=== PATIENT | female | born 1990 | race African-American/Black ===

== ENCOUNTER 2016-06-12 22:46 | Emergency (ER) | payer OTHER ==
[~2016-06-12] VITALS: Ht 188 cm; Wt 160.2 kg
[~2016-06-12 22:46] MED LIST: CIPRO250 MG PO; NOHOMEMEDS; TEGRETOL200 MG PO
[2016-06-12] MEDS ORDERED: KEPPRA500 MG PO (23:09)
[2016-06-12 23:10] LABS: EOSINOPHIL (%) 2.7 % (0-5); EOSINOPHIL COUNT 0.3 K/uL (0-0.3); IMMATURE GRANULOCYTE (%) 0.2 % (0.0-0.7); IMMATURE GRANULOCYTE COUNT 0.2 K/uL; MCH 28.9 PG (29.0-34.0); MCHC 33.9 G/DL (30.0-36.0); MCV 85.2 FL (83-99); MEAN PLAT.VOLUME 9.6 uM^3 (9.5-12.4); MONOCYTE (%) 6.3 % (3-12); MONOCYTE COUNT 0.6 K/uL (0-0.8); NEUTROPHIL (%) 39.8 % (45-76); NEUTROPHIL COUNT 3.9 K/uL (1.8-6.4); PLATELET COUNT 270 K/uL (156-360); RBC DIS.WIDTH-CV 12.9 % (11.8-14.6); RBC DIS.WIDTH-SD 39.6 % (39-53); RED BLOOD COUNT 4.81 M/uL (3.80-5.20); WHITE BLOOD COUNT 9.9 K/uL (4.1-10.2)
[2016-06-12 23:19] LABS: CHLORIDE 106 mEq/L (99-109); POTASSIUM 3.7 mEq/L (3.7-5.4); SODIUM 139 mEq/L (136-147)
[2016-06-12 23:21] LABS: GLUCOSE 87 mg/dL (70-99)
[2016-06-12 23:22] LABS: ANION GAP 11 MEQ/L (2-14)
[2016-06-12 23:23] LABS: TOTAL BILIRUBIN 0.2 mg/dL (0.0-1.0)
[2016-06-12 23:25] LABS: ALKALINE PHOSPHATASE 76 IU/L (3-129); GFR ESTIMATE (CALCULATED) > 59 mL/min/
[2016-06-12 23:26] LABS: UREA NITROGEN (BUN) 9 mg/dL (9-23)
[2016-06-12 23:33] LABS: QUANTITATIVE HCG < 4.0 MIU/ML
[2016-06-13 00:35] VITALS: BP 138/85
== END 2016-06-13 00:35 | disposition home or self-care (01) ==
LOC: EME → EDBD 22:46 → EME 06-13 00:35
PROVIDERS: Emergency Medicine
DX: G40.909 Epilepsy, unspecified, not intractable, without status epilepticus (principal)
CPT/HCPCS: 70450; 80053; 81003; 84702; 85025; 99281; 99285

== ENCOUNTER 2016-10-09 22:54 | Emergency (ER) | payer SELFPAY ==
[~2016-10-09] VITALS: Ht 188 cm; Wt 156.9 kg
[~2016-10-09 22:54] MED LIST changes: +KEPPRA500 MG PO
[2016-10-10 00:21] LABS: HEMATOCRIT 40.3 % (36.0-46.0); MCH 29.2 PG (29.0-34.0); MCHC 32.8 G/DL (30.0-36.0); MCV 89.2 FL (83-99); PLATELET COUNT 283 K/uL (156-360); RBC DIS.WIDTH-CV 12.5 % (11.8-14.6); RBC DIS.WIDTH-SD 41.1 % (39-53); RED BLOOD COUNT 4.52 M/uL (3.80-5.20); WHITE BLOOD COUNT 10.3 K/uL (4.1-10.2)
[2016-10-10 00:33] LABS: CHLORIDE 109 mEq/L (99-109); POTASSIUM 3.7 mEq/L (3.7-5.4); SODIUM 140 mEq/L (136-147)
[2016-10-10 00:35] LABS: GLUCOSE 97 mg/dL (70-99)
[2016-10-10 00:36] LABS: ANION GAP 9 MEQ/L (2-14)
[2016-10-10 00:38] LABS: ADD MIUA? YES; BILIRUBIN NEGATIVE; BLOOD NEGATIVE; COLOR YELLOW ((YELLOW)); GLUCOSE (STRIP) NEGATIVE; KETONES NEGATIVE; LEUKOCYTES LARGE; NITRITE NEGATIVE; PROTEIN (STRIP) 30; SPECIFIC GRAVITY 1.016 (1.000-1.030); UROBILINOGEN 0.2 MG/DL (0.2-1.0)
[2016-10-10 00:39] LABS: GFR ESTIMATE (CALCULATED) > 59 mL/min/
[2016-10-10 00:40] LABS: UREA NITROGEN (BUN) 8 mg/dL (9-23)
[2016-10-10 00:41] LABS: CREATINE KINASE 328 IU/L (1-294); TOTAL CK 328 IU/L (1-294)
[2016-10-10 00:46] LABS: BACTERIA RARE /HPF; EPITHELIAL CELLS 1+ /HPF; HYALINE CASTS 0-5 /LPF; MUCUS 1+ /LPF; UCUL ADDED? NO; WHITE BLOOD CELLS 30-40 /HPF (0-5)
[2016-10-10 00:46] LABS: AMPHETAMINE PRESUMPTIVE POSITIVE (500 ng/mL); BARBITURATES NEGATIVE (200 ng/mL); BENZODIAZEPINES NEGATIVE (150 ng/mL); COCAINE NEGATIVE (150 ng/mL); INTERNAL CONTROLS VALID? YES; METHADONE NEGATIVE (200 ng/mL); METHAMPHETAMINE NEGATIVE (500 ng/mL); OPIATES (MORPHINE) NEGATIVE (100 ng/mL); OXYCODONE NEGATIVE (100 ng/mL); PHENCYCLIDINE NEGATIVE (25 ng/mL); PROPOXYPHENE NEGATIVE (300 ng/mL); THC CANNABINOIDS PRESUMPTIVE POSITIVE (50 ng/mL); TRICYCLIC ANTIDEPRESSANTS NEGATIVE (300 ng/mL)
[2016-10-10 00:47] LABS: CK-MB 0.9 ng/mL (0.0-4.9)
[2016-10-10 00:47] LABS: ADD MEDTOX COMMENT Y
[2016-10-10] MEDS ORDERED: MACROBID100 MG PO (01:44)
[2016-10-10 01:51] VITALS: BP 147/76
== END 2016-10-10 01:53 | disposition home or self-care (01) ==
LOC: EME → EDBD 22:54 → EME 22:54
PROVIDERS: Emergency Medicine
DX: G40.909 Epilepsy, unspecified, not intractable, without status epilepticus (principal); N30.91 Cystitis, unspecified with hematuria; I10 Essential (primary) hypertension; F17.200 Nicotine dependence, unspecified, uncomplicated
CPT/HCPCS: 80048; 80156; 81003; 82550; 82553; 84999; 85027; 99281; 99285; J7030

== ENCOUNTER 2017-01-15 10:41 | Emergency (ER) | payer SELFPAY ==
[~2017-01-15] VITALS: Ht 188 cm; Wt 150.2 kg
[~2017-01-15 10:41] MED LIST changes: +MACROBID100 MG PO
[2017-01-15 12:57] LABS: HEMATOCRIT 44.8 % (36.0-46.0); MCH 28.7 PG (29.0-34.0); MCHC 32.4 G/DL (30.0-36.0); MCV 88.5 FL (83-99); MEAN PLAT.VOLUME 10.7 uM^3 (9.5-12.4); PLATELET COUNT 294 K/uL (156-360); RBC DIS.WIDTH-CV 12.8 % (11.8-14.6); RBC DIS.WIDTH-SD 41.6 % (39-53); RED BLOOD COUNT 5.06 M/uL (3.80-5.20); WHITE BLOOD COUNT 10.9 K/uL (4.1-10.2)
[2017-01-15 13:09] LABS: ADD MIUA? YES; BILIRUBIN NEGATIVE; BLOOD NEGATIVE; COLOR YELLOW ((YELLOW)); GLUCOSE (STRIP) NEGATIVE; KETONES NEGATIVE; LEUKOCYTES NEGATIVE; NITRITE NEGATIVE; PROTEIN (STRIP) NEGATIVE; SPECIFIC GRAVITY 1.019 (1.000-1.030); UROBILINOGEN 0.2 MG/DL (0.2-1.0)
[2017-01-15 13:11] LABS: CHLORIDE 106 mEq/L (99-109); POTASSIUM 4.3 mEq/L (3.7-5.4); SODIUM 138 mEq/L (136-147)
[2017-01-15 13:12] LABS: BACTERIA RARE /HPF; EPITHELIAL CELLS 1+ /HPF; MUCUS TRACE /LPF; RED BLOOD CELLS 0-5 /HPF (0-5); UCUL ADDED? NO; WHITE BLOOD CELLS 0-5 /HPF (0-5)
[2017-01-15 13:12] LABS: GLUCOSE 87 mg/dL (70-99)
[2017-01-15 13:14] LABS: ANION GAP 11 MEQ/L (2-14)
[2017-01-15 13:16] LABS: GFR ESTIMATE (CALCULATED) > 59 mL/min/
[2017-01-15 13:17] LABS: UREA NITROGEN (BUN) 9 mg/dL (9-23)
[2017-01-15 13:25] LABS: QUANTITATIVE HCG < 4.0 MIU/ML
[2017-01-15 13:57] LABS: TOTAL BILIRUBIN 0.2 mg/dL (0.0-1.0)
[2017-01-15 13:59] LABS: ALKALINE PHOSPHATASE 88 IU/L (3-129)
[2017-01-15 14:01] LABS: DIRECT BILIRUBIN 0.1 mg/dL (0.0-0.3)
[2017-01-15 15:29] VITALS: BP 132/76
== END 2017-01-15 15:30 | disposition home or self-care (01) ==
LOC: EME 10:41
PROVIDERS: Physician Assistant Medical
DX: G40.909 Epilepsy, unspecified, not intractable, without status epilepticus (principal); I10 Essential (primary) hypertension; F41.9 Anxiety disorder, unspecified; F17.200 Nicotine dependence, unspecified, uncomplicated; Z88.0 Allergy status to penicillin; Z91.040 Latex allergy status; Z88.8 Allergy status to other drugs, medicaments and biological substances
CPT/HCPCS: 80048; 80076; 80156; 81003; 84702; 85027; 99281; 99284

== ENCOUNTER 2017-10-30 19:31 | Emergency (ER) | payer OTHER ==
[~2017-10-30] VITALS: Ht 185.4 cm; Wt 159.5 kg
[2017-10-30 20:08] LABS: HEMATOCRIT 40.8 % (36.0-46.0); HEMOGLOBIN 13.5 G/DL (11.9-15.5); MCH 29.2 PG (29.0-34.0); MCHC 33.1 G/DL (30.0-36.0); MCV 88.1 FL (83-99); PLATELET COUNT 291 K/uL (156-360); RBC DIS.WIDTH-CV 12.5 % (11.8-14.6); RBC DIS.WIDTH-SD 40.4 % (39-53); RED BLOOD COUNT 4.63 M/uL (3.80-5.20); WHITE BLOOD COUNT 9.5 K/uL (4.1-10.2)
[2017-10-30 20:19] LABS: ALBUMIN 4.3 g/dL (3.2-4.8); CHLORIDE 106 mEq/L (99-109); POTASSIUM 3.8 mEq/L (3.7-5.4); SODIUM 139 mEq/L (136-147)
[2017-10-30 20:22] LABS: GLUCOSE 89 mg/dL (70-99); TOTAL PROTEIN 7.7 g/dL (6.4-8.3)
[2017-10-30 20:23] LABS: TOTAL BILIRUBIN 0.2 mg/dL (0.0-1.0)
[2017-10-30 20:25] LABS: ALKALINE PHOSPHATASE 96 IU/L (3-129); CREATININE 0.9 mg/dL (0.6-1.3); GFR ESTIMATE (CALCULATED) > 59 mL/min/
[2017-10-30 20:26] LABS: UREA NITROGEN (BUN) 9 mg/dL (9-23)
[2017-10-30 20:27] LABS: AST (GOT) 22 IU/L (2-34)
[2017-10-30 20:28] LABS: ALT (GPT) 29 IU/L (3-49)
[2017-10-30 20:29] LABS: LIPASE 33 U/L (1.0-51.0)
[2017-10-30 20:34] LABS: QUANTITATIVE HCG < 4.0 MIU/ML
[2017-10-30 20:54] LABS: APPEARANCE SL.HAZY ((CLEAR)); BILIRUBIN NEGATIVE; BLOOD NEGATIVE; COLOR YELLOW ((YELLOW)); GLUCOSE (STRIP) NEGATIVE; KETONES NEGATIVE; LEUKOCYTES SMALL; NITRITE NEGATIVE; PROTEIN (STRIP) NEGATIVE; SPECIFIC GRAVITY 1.017 (1.000-1.030); UROBILINOGEN 0.2 MG/DL (0.2-1.0)
[2017-10-30 21:00] LABS: BACTERIA NONE SEEN /HPF; EPITHELIAL CELLS 2+ /HPF; MUCUS TRACE /LPF; RED BLOOD CELLS 0-5 /HPF (0-5); UCUL ADDED? NO; WHITE BLOOD CELLS 0-5 /HPF (0-5)
[2017-10-30] MEDS ORDERED: NAPROSYN500 MG PO (23:06)
[2017-10-30] MEDS ORDERED: MIRALAX255 GM PO (23:06)
[2017-10-30 23:08] LABS: SOURCE URINE
[2017-10-30 23:45] VITALS: BP 139/74
[2017-11-01 17:31] LABS: CHLAMYDIA TRACHOMATIS NEGATIVE; NEISSERIA GONORRHOEAE NEGATIVE
== END 2017-10-30 23:46 | disposition home or self-care (01) ==
LOC: EME 19:31 → EXP 19:31
DX: R10.32 Left lower quadrant pain (principal); N83.8 Other noninflammatory disorders of ovary, fallopian tube and broad ligament; K59.00 Constipation, unspecified; R03.0 Elevated blood-pressure reading, without diagnosis of hypertension; R35.0 Frequency of micturition; N88.8 Other specified noninflammatory disorders of cervix uteri; R11.0 Nausea; R10.2 Pelvic and perineal pain; Z88.0 Allergy status to penicillin; Z87.891 Personal history of nicotine dependence
CPT/HCPCS: 74176; 76856; 80053; 81003; 83690; 84702; 85027; 87491; 87591; 99281; 99284; J3010

== ENCOUNTER 2017-11-03 15:58 | Inpatient (IN) | payer OTHER ==
[~2017-11-03] VITALS: Ht 185.4 cm; Wt 152.1 kg
[~2017-11-03 15:58] MED LIST changes: +MIRALAX255 GM PO; +NAPROSYN500 MG PO
[2017-11-03 17:32] LABS: BASOPHIL (%) 0.3 % (0-1); EOSINOPHIL (%) 2.2 % (0-5); EOSINOPHIL COUNT 0.2 K/uL (0-0.3); HEMATOCRIT 39.1 % (36.0-46.0); HEMOGLOBIN 12.8 G/DL (11.9-15.5); IMMATURE GRANULOCYTE (%) 0.2 % (0.0-0.7); LYMPHOCYTE COUNT 3.5 K/uL (1.0-2.8); MCH 28.8 PG (29.0-34.0); MCHC 32.7 G/DL (30.0-36.0); MCV 88.1 FL (83-99); MONOCYTE (%) 5.7 % (3-12); MONOCYTE COUNT 0.5 K/uL (0-0.8); NEUTROPHIL (%) 52.6 % (45-76); NEUTROPHIL COUNT 4.8 K/uL (1.8-6.4); PLATELET COUNT 248 K/uL (156-360); RBC DIS.WIDTH-CV 12.4 % (11.8-14.6); RBC DIS.WIDTH-SD 40.1 % (39-53); RED BLOOD COUNT 4.44 M/uL (3.80-5.20); WHITE BLOOD COUNT 9.1 K/uL (4.1-10.2)
[2017-11-03 17:48] LABS: ALBUMIN 3.9 g/dL (3.2-4.8); CHLORIDE 105 mEq/L (99-109); POTASSIUM 4.1 mEq/L (3.7-5.4); SODIUM 139 mEq/L (136-147)
[2017-11-03 17:51] LABS: GLUCOSE 105 mg/dL (70-99); TOTAL PROTEIN 6.9 g/dL (6.4-8.3)
[2017-11-03 17:52] LABS: TOTAL BILIRUBIN 0.2 mg/dL (0.0-1.0)
[2017-11-03 17:54] LABS: ALKALINE PHOSPHATASE 79 IU/L (3-129); CREATININE 0.8 mg/dL (0.6-1.3); GFR ESTIMATE (CALCULATED) > 59 mL/min/; SERUM ETHYL ALCOHOL < 10 mg/dL
[2017-11-03 17:55] LABS: UREA NITROGEN (BUN) 8 mg/dL (9-23)
[2017-11-03 17:56] LABS: AST (GOT) 19 IU/L (2-34)
[2017-11-03 17:57] LABS: ALT (GPT) 22 IU/L (3-49)
[2017-11-03 17:58] LABS: LIPASE 25 U/L (1.0-51.0)
[2017-11-03 18:04] LABS: QUANTITATIVE HCG < 4.0 MIU/ML
[2017-11-03 23:22] VITALS: BP 144/80
[2017-11-04 01:30] LABS: APPEARANCE CLEAR ((CLEAR)); BILIRUBIN NEGATIVE; BLOOD NEGATIVE; COLOR STRAW ((YELLOW)); GLUCOSE (STRIP) NEGATIVE; KETONES NEGATIVE; LEUKOCYTES TRACE; NITRITE NEGATIVE; PROTEIN (STRIP) NEGATIVE; SPECIFIC GRAVITY 1.013 (1.000-1.030); UROBILINOGEN 0.2 MG/DL (0.2-1.0)
[2017-11-04 01:42] LABS: BACTERIA RARE /HPF; EPITHELIAL CELLS 1+ /HPF; MUCUS NONE SEEN /LPF; RED BLOOD CELLS NONE SEEN /HPF (0-5); UCUL ADDED? YES
[2017-11-04 02:33] LABS: BENZODIAZEPINES, URINE SCREEN Negative (200 ng/mL)
[2017-11-04 09:14] VITALS: BP 145/74
[2017-11-04 15:35] VITALS: BP 147/70
[2017-11-05 09:33] VITALS: BP 128/63
[2017-11-05 15:29] VITALS: BP 144/64
[2017-11-06 08:13] VITALS: BP 170/56
[2017-11-06 16:21] VITALS: BP 138/70
[2017-11-07 07:53] VITALS: BP 132/66
[2017-11-07] MEDS ORDERED: NATURAL BALANCE15 M1 BOTH EYES (10:26)
[2017-11-07] MEDS ORDERED: PAROXETINE HCL20 MG PO (10:26)
[2017-11-07] MEDS ORDERED: BUSPAR10 MG PO (10:26)
[2017-11-07] MEDS ORDERED: PRAZOSIN HCL1 MG PO (10:26)
[2017-11-07] MEDS ORDERED: HYDROXYZINE PAM50 MG PO (10:29)
== END 2017-11-07 12:38 | disposition home or self-care (01) | DRG 882 ==
LOC: EME 15:58 → EDOF 19:36 → 1WEST 19:36 → ENRESERV 22:11 → 1WEST 23:09
PROVIDERS: Emergency Medicine
DX: F40.01 Agoraphobia with panic disorder (principal); R45.851 Suicidal ideations; F33.2 Major depressive disorder, recurrent severe without psychotic features; G40.909 Epilepsy, unspecified, not intractable, without status epilepticus; F41.1 Generalized anxiety disorder; I10 Essential (primary) hypertension; N92.6 Irregular menstruation, unspecified; E66.01 Morbid (severe) obesity due to excess calories; Z68.42 Body mass index [BMI] 45.0-49.9, adult; R73.03 Prediabetes; F12.10 Cannabis abuse, uncomplicated; F43.12 Post-traumatic stress disorder, chronic; E28.2 Polycystic ovarian syndrome; F60.9 Personality disorder, unspecified; Z91.410 Personal history of adult physical and sexual abuse; Z87.891 Personal history of nicotine dependence; Z80.49 Family history of malignant neoplasm of other genital organs
CPT/HCPCS: 74177; 80053; 80306 90; 81003; 83690; 84702; 85025; 87086; 90839; 97150 GO; 97165 GO; 99281; 99285; G0480; Q0177

== ENCOUNTER 2017-12-12 02:26 | Emergency (ER) | payer OTHER ==
[~2017-12-12] VITALS: Ht 188 cm; Wt 158.0 kg
[~2017-12-12 02:26] MED LIST changes: +BUSPAR10 MG PO; +HYDROXYZINE PAM50 MG PO; +NATURAL BALANCE15 M1 BOTH EYES; +PAROXETINE HCL20 MG PO; +PRAZOSIN HCL1 MG PO
[2017-12-12] MEDS ORDERED: TRAMADOL HCL50 MG PO (03:05)
[2017-12-12] MEDS ORDERED: KEFLEX500 MG PO (03:05)
[2017-12-12 03:46] VITALS: BP 152/84
== END 2017-12-12 03:46 | disposition home or self-care (01) ==
LOC: EME → EDBD 02:26 → EME 03:46
DX: T21.22XA Burn of second degree of abdominal wall, initial encounter (principal); T23.101A Burn of first degree of right hand, unspecified site, initial encounter; T31.0 Burns involving less than 10% of body surface; X12.XXXA Contact with other hot fluids, initial encounter; Y93.G3 Activity, cooking and baking; F32.9 Major depressive disorder, single episode, unspecified; F41.9 Anxiety disorder, unspecified; I10 Essential (primary) hypertension; Z86.69 Personal history of other diseases of the nervous system and sense organs; Z88.0 Allergy status to penicillin; Z88.6 Allergy status to analgesic agent; Z87.891 Personal history of nicotine dependence; Z91.040 Latex allergy status
CPT/HCPCS: 99281; 99284; J7030